=== PATIENT | female | born 1970 | race Caucasian/White ===

== ENCOUNTER 2018-10-12 18:21 | Emergency (ER) | payer OTHER ==
[~2018-10-12] VITALS: Ht 157.5 cm; Wt 72.6 kg
[2018-10-12 18:27] VITALS: BP_SYST 135
--- NOTE | 2018-10-12 20:50 | NUR ---
Patient to [facility] Chair 1 for evaluation.
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
--- NOTE | 2018-10-12 21:25 | NUR ---
ER at bedside examining patient.
[2018-10-12] MEDS ORDERED: DIPH-TET-PERTUS Vaccine 0.5 ML VIAL (ADACEL) I.M. ONE (22:00)
[2018-10-12 22:15] VITALS: BP_SYST 130
--- NOTE | 2018-10-12 22:15 | NUR ---
Patient given written and verbal discharge instructions and verbalizes understanding. ER MD discussed with patient the results and treatment provided. Patient in stable condition. ID arm band removed. Rx of [place] given. Patient educated on pain management and to follow up with PMD. Pain Scale 0. Opportunity for questions provided and answered. Medication side effect fact sheet provided. Patient left ER in no acute distress, able to ambulate without difficulty with slow, steady gait. Burn to left forearm was cleansed and dressed. No adverse reaction noted to medication.
== END 2018-10-12 22:15 | disposition home or self-care (01) ==
LOC: SED 18:21
DX: T22.212A Burn of second degree of left forearm, initial encounter (principal); T31.0 Burns involving less than 10% of body surface; R03.0 Elevated blood-pressure reading, without diagnosis of hypertension; X12.XXXA Contact with other hot fluids, initial encounter; Y93.89 Activity, other specified; Y92.89 Other specified places as the place of occurrence of the external cause; Y99.8 Other external cause status
CPT/HCPCS: 90715; 99284

== ENCOUNTER 2022-09-21 11:43 | Emergency (ER) | payer BC, OTHER ==
[~2022-09-21] VITALS: Ht 162.6 cm; Wt 72.6 kg
[2022-09-21 11:50] VITALS: BP_SYST 137
[2022-09-21] MEDS ORDERED: DIPHTH,PERTUSS(ACELL),TET VAC 0.5 ML VIAL (Tdap) I.M. ONE (12:00)
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
--- NOTE | 2022-09-21 12:01 | NUR ---
MD DR PRICE AT BEDSIDE
--- NOTE | 2022-09-21 12:20 | NUR ---
PT RECEIVED TETTANUS SHOT
[2022-09-21] MEDS ORDERED: TRAM50TA2 PO (12:32)
--- NOTE | 2022-09-21 12:35 | NUR ---
MD DR PRICE AT BEDSIDE W/ LACERATION KIT
[2022-09-21 13:03] VITALS: BP_SYST 135
--- NOTE | 2022-09-21 13:06 | NUR ---
Patient given written and verbal discharge instructions and verbalizes understanding. ER MD DR PRICE discussed with patient the results and treatment provided. Patient in stable condition. ID arm band removed. Rx of TRAMODOL given. Patient educated on pain management and to follow up with PMD. Pain Scale 4/10. Opportunity for questions provided and answered. Medication side effect fact sheet provided.
== END 2022-09-21 13:03 | disposition home or self-care (01) ==
LOC: SED 11:43
DX: S91.312A Laceration without foreign body, left foot, initial encounter (principal); Z79.899 Other long term (current) drug therapy; W25.XXXA Contact with sharp glass, initial encounter; Y93.89 Activity, other specified; Y92.89 Other specified places as the place of occurrence of the external cause; Y99.8 Other external cause status
CPT/HCPCS: 90715; 99283